=== PATIENT | female | born 1990 | race Two or more races ===

== ENCOUNTER 2016-11-13 22:42 | Emergency (ER) | payer SELFPAY ==
[2016-11-13] MEDS ORDERED: Ondansetron ODT TAB* 4 MG PO ONE ×2 (23:24→23:29)
[2016-11-13] MEDS ORDERED: LORazepam TAB(*) 1 MG PO ONE (23:24)
--- NOTE | 2016-11-13 23:39 | ED ---
Substance Abuse/Use - HPI Summary HPI Summary: Patient presents with anxiety related to not using heroin for 20 hours. She has been in multiple detoxification programs but is working with a doctor at home in [place] who has prescribed her suboxone to help her detox at home. She took her first dose this AM as directed but presents asking for medication to help with her anxiety and nausea. She denies CP, SOB or fever. - History Of Current Complaint Chief Complaint: EDSubstanceAbuse Stated Complaint: DETOX Time Seen by Provider: 11/13/16 23:07 Hx Obtained From: Patient, Family/Special Tester ?: No Onset/Duration of Drug/ETOH Abuse: Hours Overdose Characteristics: IV Timing Of Abuse: Daily, Recent Cessation For A Period Of - 20 hours Severity Initially: Mild Severity Currently: Moderate Character: Anxious Alleviating Factor(s): Medication Associated Signs And Symptoms: Diarrhea Related Hx: Prior Drug Abuse Counseling/Admission - Allergies/Home Medications Allergies/Adverse Reactions: Allergies Allergy/AdvReac Type Severity Reaction Status Date / Time No Known Allergies Allergy Verified 06/21/13 08:35 PMH/Surg Hx/FS Hx/Imm Hx Psychiatric History: Reports: Hx Substance Abuse - heroin Denies: Hx Eating Disorder, Hx of Violent Episodes Against Others - Immunization History Date of Tetanus Vaccine: Up to date for school Date of Influenza Vaccine: None Infectious Disease History: No Infectious Disease History: Denies: Traveled Outside the [place] in Last 30 Days - Family History Known Family History: Positive: None - Social History Occupation: Student Lives: With Family Alcohol Use: None Substance Use Type: Reports: Heroin Substance Use Comment - Amount & Last Used: Snorting, subutex at 2200 Smoking Status (MU): Current Some Day Smoker Cessation Counseling: Patient Advised to Stop Review of Systems Negative: Fever Positive: Nausea Positive: Anxious All Other Systems Reviewed And Are Negative: Yes Physical Exam Triage Information Reviewed: Yes Vital Signs On Initial Exam: Initial Vitals BP 115/68 11/13/16 22:54 Vital Signs Reviewed: Yes Appearance: Positive: Well-Appearing, Well-Nourished, Pain Distress Skin: Positive: Warm, Skin Color Reflects Adequate Perfusion, Dry, Soft Head/Face: Positive: Normal Head/Face Inspection Eyes: Positive: EOMI, DAVID, Conjunctiva Clear ENT: Positive: Hearing grossly normal Respiratory/Lung Sounds: Positive: Breath Sounds Present Cardiovascular: Positive: RRR Abdomen Description: Positive: Soft Musculoskeletal: Negative: Edema Left, Edema Right Neurological: Positive: Sensory/Motor Intact, Alert, Oriented to Person Place, Time, NV Bundle Intact Distally, Normal Gait Psychiatric: Positive: Affect/Mood Appropriate AVPU Assessment: Alert - Bob Coma Scale Coma Scale Total: 15 Diagnostics - Vital Signs Vital Signs Temp Pulse Resp BP Pulse Ox 11/13/16 23:00 68 32 117/66 99 11/13/16 22:56 64 33 99 11/13/16 22:55 99.7 F 64 25 113/60 100 11/13/16 22:54 115/68 - Laboratory Lab Statement: Any lab studies that have been ordered have been reviewed, and results considered in the medical decision making process. Course/Dx - Course Course Of Treatment: I provided information on detox facilities in the area and let the boyfriend know that we do not have that service at [facility] [place]. He was appreciative and will follow-up with her PCP in [place] tomorrow. - Diagnoses Differential Diagnosis/HQI/PQRI: Positive: Acute Psychosis, Alcohol Abuse, Alcohol Withdrawal, Drug Abuse, Drug Withdrawal Provider Diagnoses: Opioid withdrawal - Physician Notifications Discussed Care Of Patient With: Dr. Lee, ED attending Discharge - Discharge Plan Condition: Stable Disposition: HOME Patient Education Materials: Opioid Withdrawal (ED) Referrals: No Primary Care Phys,NOPCP [Primary Care Provider] - Additional Instructions: Please call one of the facilities listed for local treatment or work with your doctor in [place]. Use the medication provided for symptoms. Drink fluids and rest. Return to the emergency department if symptoms worsen.
[2016-11-14] MEDS ORDERED: LORazepam TAB(*) 1 MG PO ONE (00:20)
[2016-11-14 00:27] VITALS: BP 112/76
== END 2016-11-14 00:36 | disposition home or self-care (01) ==
LOC: ED 22:42
DX: F11.23 Opioid dependence with withdrawal (principal); R19.7 Diarrhea, unspecified; R11.0 Nausea; F41.9 Anxiety disorder, unspecified; Z72.0 Tobacco use; T40.2X5A Adverse effect of other opioids, initial encounter; Y92.9 Unspecified place or not applicable
CPT/HCPCS: 99282; A9270-GY